=== PATIENT | female | born 1975 | race Caucasian/White ===

== ENCOUNTER 2021-12-01 04:12 | Inpatient (IN) | payer OTHER ==
[2021-11-26 11:41] VITALS: BMI 31.2
[2021-12-01] MEDS ORDERED: GABAPENTIN 300 MG CAPSULE ONE (06:24)
[2021-12-01] MEDS ORDERED: ceFAZolin SODIUM 1 GM VIAL ONE ×3 (06:25→17:52)
[2021-12-01] MEDS ORDERED: ACETAMINOPHEN 1000 MG/100 ML BAG IVPB ONE ×2 (07:30→13:45)
[2021-12-01] MEDS ORDERED: TRANEXAMIC ACID 1000 MG/10 ML VIAL IVPUSH ONE (07:30)
[2021-12-01] MEDS ORDERED: GABAPENTIN 300 MG CAPSULE PO ONE (07:30)
[2021-12-01] MEDS ORDERED: SCOPOLAMINE HYDROBROMIDE 1 PATCH PATCH.TD72 ONE (07:50)
[2021-12-01] MEDS ORDERED: BUPIVACAINE HCL/PF 0.25% (2.5MG/ML) 10 ML VIAL ONE (07:50)
[2021-12-01] MEDS ORDERED: PROPOFOL 20 ML ONE (07:53)
[2021-12-01] MEDS ORDERED: ROCURONIUM BROMIDE 50 MG/5 ML SYRINGE ONE ×2 (07:53→09:07)
[2021-12-01] MEDS ORDERED: MIDAZOLAM HCL 2 MG/2 ML SINGLE DOSE VIAL ONE (07:54)
[2021-12-01] MEDS ORDERED: PROMETHAZINE HCL 25 MG/1 ML VIAL IVPUSH PRN (07:59)
[2021-12-01] MEDS ORDERED: ONDANSETRON 4 MG/2 ML VIAL IVPUSH PRN ×2 (07:59→10:33)
[2021-12-01] MEDS ORDERED: CEFAZOLIN 2 GM in DEXTROSE 5%-WATER 100 ML IVPB ONE (08:00)
[2021-12-01] MEDS ORDERED: LACTATED RINGERS SOLUTION 1,000 ML IV SCH (08:00)
[2021-12-01] MEDS ORDERED: ceFAZolin SODIUM 1 GM VIAL IVPB ONE (08:47)
[2021-12-01] MEDS ORDERED: KETAMINE HCL 200 MG/20 ML VIAL ONE (09:01)
[2021-12-01] MEDS ORDERED: NEOSTIGMINE METHYLSULFATE 0.5 MG/ML - 10 ML MDV ONE (09:35)
[2021-12-01] MEDS ORDERED: SUCCINYLCHOLINE CHLORIDE 200 MG/10 ML SYRINGE ONE (10:02)
[2021-12-01] MEDS ORDERED: oxyCODONE HCL 5 MG TABLET PO PRN ×2 (10:33)
[2021-12-01] MEDS ORDERED: DOCUSATE SODIUM 100 MG CAPSULE (FP) PO PRN (10:33)
[2021-12-01] MEDS ORDERED: SIMETHICONE 80 MG TAB.CHEW (FP) PO PRN (10:33)
[2021-12-01] MEDS ORDERED: BISACODYL 5 MG TABLET.DR (FP) PO PRN (10:33)
[2021-12-01] MEDS ORDERED: ACETAMINOPHEN INJECTION 100 ML IVPB ONE (10:51)
[2021-12-01] MEDS ORDERED: FENTANYL CITRATE/PF 50 MCG/ML VIAL ONE ×2 (11:17→11:38)
[2021-12-01] MEDS ORDERED: HYDROmorphone HCl 2 MG/ML VIAL IVPB ONE (14:45)
[2021-12-01] MEDS ORDERED: HYDROmorphone HCl 2 MG/ML VIAL ONE (14:47)
[2021-12-01] MEDS: IBUPROFEN 800 MG/8 ML IJ IVPB SCH (17:15)
[2021-12-01] MEDS: ACETAMINOPHEN 325 MG TABLET (FP) PO SCH ×2 (17:19→22:24)
[2021-12-01] MEDS ORDERED: DEXTROSE 5%-WATER - 50 ML IVPB ONE (17:52)
[2021-12-01] MEDS ORDERED: CEFAZOLIN 1 GM in DEXTROSE 5%-WATER - 50 ML IVPB SCH (18:00)
[2021-12-01] MEDS: CEFAZOLIN 1 GM in DEXTROSE 5%-WATER - 50 ML IVPB SCH (18:11)
[2021-12-01] MEDS ORDERED: LORATADINE 10 MG TABLET PO PRN (19:03)
[2021-12-02] MEDS: IBUPROFEN 800 MG/8 ML IJ IVPB SCH ×2 (00:08→09:13)
[2021-12-02] MEDS: ACETAMINOPHEN 325 MG TABLET (FP) PO SCH ×4 (01:04→13:10)
[2021-12-02] MEDS ORDERED: DEXTROSE 5%-WATER - 50 ML IVPB ONE (01:33)
[2021-12-02] MEDS ORDERED: ceFAZolin SODIUM 1 GM VIAL ONE (01:33)
[2021-12-02] MEDS: CEFAZOLIN 1 GM in DEXTROSE 5%-WATER - 50 ML IVPB SCH (01:56)
[2021-12-02 09:03] LABS: HEMATOCRIT 30.2 % (32.4-45.2); HEMOGLOBIN 10.4 GM/dL (10.7-15.3); MCH 29.1 pg (25.7-33.7); MCHC 34.3 g/dl (32.0-36.0); MEAN CELL VOLUME 84.7 fl (80-96); MEAN PLT VOLUME 6.5 fl (7.5-11.1); PLATELET COUNT 561 10^3/uL (134-434); RBC 3.57 M/mm3 (3.60-5.2); RDW 13.1 % (11.6-15.6); WHITE BLOOD COUNT 7.7 K/mm3 (4.0-10.0)
[2021-12-02] MEDS ORDERED: PANTOPRAZOLE 20 MG TABLET PO SCH (10:00)
[2021-12-02 13:09] VITALS: BP 105/70; PULSE 89; TEMP 98.9
== END 2021-12-02 15:20 | disposition home or self-care (01) | DRG 519 ==
LOC: JASUSAT 04:12 → J2C 10:33 → J3W 13:13
PROVIDERS: ADMIT Specialist; ATTEND Specialist
PROC: 0UT70ZZ Resection of Bilateral Fallopian Tubes, Open Approach (ICD-10-PCS; 2021-12-01)
PROC: 0UT90ZL Resection of Uterus, Supracervical, Open Approach (ICD-10-PCS; principal; 2021-12-01 08:00)
DX: D25.9 Leiomyoma of uterus, unspecified (principal); R10.2 Pelvic and perineal pain; N83.12 Corpus luteum cyst of left ovary
CPT/HCPCS: 36415; 81025; 85027; 86850; 86900; 86901; 86922; 88302-TC; 88307-TC; 88341-TC; 94010; 94760